=== PATIENT | female | born 1945 | race African-American/Black ===

== ENCOUNTER 2016-08-07 09:13 | Day surgery (SDC) | payer MEDICARE ==
--- NOTE | 2016-08-01 03:36 | HP ---
HISTORY AND PHYSICAL/CONSULTATION NOTE: DATE OF ADMISSION: For cataract surgery on 08/07/16 and 08/14/16. HISTORY OF PRESENT ILLNESS: The patient is a 71-year-old woman scheduled for cataract extractions. PAST MEDICAL HISTORY: The patient's medical problems are follows: 1. Type 2 diabetes mellitus, not well controlled, but with improving control on insulin. 2. Essential hypertension. 3. Obesity. 4. Subclinical hyperthyroidism. 5. 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 6. History of vitamin D deficiency. 7. Gastroesophageal reflux disease. 8. Abdominal pain due to above #5. PAST SURGICAL HISTORY: Include: 1. ROBERT/BSO. 2. Left great toe amputation for osteomyelitis, 2009. 3. Left forefoot metatarsal amputation, 2010. 4. Perirectal abscess I and D, 2009. 5. Cholecystectomy. CURRENT MEDICATIONS: As follows: 1. Hydrocodone 7.5/acetaminophen 325 mg 1 every 6 hours p.r.n. pain. 2. Glipizide extended release 20 mg b.i.d. 3. Lisinopril 2.5 mg every day. 4. Levemir insulin 65 units daily. 5. Torsemide 20 mg 1 tablet twice a day. 6. Fluconazole nasal spray 2 sprays every day to each nostril. 7. Pravastatin 20 mg daily. 8. Diltiazem 240 mg twice a day. 9. Humalog 10 mg twice a day. 10. Vitamin D3 4000 units every day. 11. B12 1000 mcg every day. 12. Ranitidine 300 mg at bedtime. 13. Magnesium oxide 400 mg twice a day. 14. Tylenol 500 mg 2 every day p.r.n. ALLERGIES: To SHELLFISH, PENICILLIN, and METFORMIN, which caused lactic acidosis and SERTRALINE, which caused nausea. FAMILY HISTORY: Positive for diabetes and cancer. SOCIAL AND PERSONAL HISTORY: The patient lives with her daughter. She is retired. HABITS: Tobacco: None. ETOH: None. Regarding smoking, she smoked in her 20s , but never was a heavy smoker. Immunizations are up-to-date. She has had her flu shot. She has had both Prevnar and Pneumovax. She has had Tdap. Zostavax, I do not see records and I will address it in at future appointment. REVIEW OF SYSTEMS: General: She has been feeling fairly well. Her appetite is good. She does not exercise and this has been discussed with her. Her weight is fairly stable. Skin: Negative. HEENT: She has some history of sinus congestion allergies. Nodes: Negative. Heme: Negative. Breast: Negative. Endocrine: See above. Respiratory: She does have a cough. Cardiovascular: Negative. GI: See above. She has had some difficulty with her bowels related to the fistula. : She has urinary frequency related to the diuretic up at night 4 times. STEM LEAD FORMER: See above. Musculoskeletal: See above. Neuro: Negative. PHYSICAL EXAMINATION GENERAL: She is a obese women. She walks with a walker, in no acute distress. VITAL SIGNS: Blood pressure 130/60, pulse 64, respirations 18, and temperature 97.1. SKIN: Warm and dry. HEENT: Eye exam per Dr. Almeida. Mouth: Pharynx unremarkable. She is edentulous. NECK: Supple. She has a goiter. Nodes without adenopathy. CHEST: Clear. HEART: Normal S1 and S2. No murmurs, gallops, or rubs. ABDOMEN: She has mild diffuse tenderness. EXTREMITIES: Showed no edema. She has a left forefoot amputation. NEUROLOGIC: Without gross focal or lateralizing signs. GAIT: With a walker. IMPRESSION: The patient with medical problems as noted above. There were no contraindication to surgeries. PLAN/RECOMMENDATIONS: I will be available in the perioperative period should any questions or problems arise. CC: Dr. Almeida * [id number]/CPS #: [id number] MTDD
[~2016-08-07 09:13] MED LIST: Acetaminophen TAB* 325 MG PO PRN; Buffered Lidocaine 1% SYR 3ML* 3 ML/SYR SYRINGE INTRADERM ONE; Cyclopentolate 1% OPTH.SOL* 2 ML BTL ONE; Flurbiprofen 0.03% OPTH.SOL* 2.5 ML BTL ONE; Lidocaine 1% MPF* 2 ML VIAL ONE; Neomycin/Polymy/Dex OPHTH.OIN* 3.5 GM ONE; Phenylephr/Ketorolac 1%/0.3% OPH DROP BTL ONE; Phenylephrine 2.5% OPTH.SOL* 2 ML BTL ONE; Tetracaine 0.5% OPTH.SOL 4 ML* 1 DROP BTL ONE; Tropicamide 1% OPTH.SOL* BTL ONE; Trypan Blue 0.06% SOL* 0.5 ML BTL ONE
[2016-08-07] MEDS ORDERED: Midazolam* 1 MG/ML 2 ML VIAL (2 MG) ONE ×2 (10:33→10:45)
[2016-08-07] MEDS ORDERED: fentaNYL* 50 MCG/ML 2 ML VIAL (100 MCG VIAL) ONE (10:33)
[2016-08-07 11:22] VITALS: BP 143/75
--- NOTE | 2016-08-08 01:52 | OP ---
DATE OF OPERATION/DICTATION: 08/07/16 - [facility] DATE OF : 49 SURGEON: Dr. Almeida MOP WORKER: None. ANESTHESIOLOGIST: John Juares DO ANESTHESIA: Topical with intravenous sedation. PRE-OP DIAGNOSIS: Dense cataract, small pupil, right eye. POST-OP DIAGNOSIS: Dense cataract, small pupil, right eye. OPERATIVE PROCEDURE: Phacoemulsification and cataract extraction with posterior chamber intraocular lens implant, right eye. COMPLICATIONS: None. BLOOD LOSS: None. DESCRIPTION OF PROCEDURE: The patient was brought to the operating room and given a small amount of intra-venous sedation. A drop of tetracaine was placed into her right eye. She was prepped and draped in the usual sterile fashion for ophthalmic surgery and attention was directed to the right eye where a speculum was placed. A paracentesis was created at the 11 o'clock position, and 0.1 cc of 1% preservative-free lidocaine was injected into the anterior chamber followed by room air. This was followed by Vision Blue dye and then by DisCoVisc. At this point, the anterior capsule was stained blue and the pupil measured approximately 5 mm in diameter. Omidria was used in the irrigating solution and the case proceeded. The eye was digitally stabilized while a 2.75 mm keratome was used to create a triplanar clear corneal incision at the 9 o' clock position. A continuous curvilinear capsulorrhexis was created using a cystotome and Utrata forceps. BSS on a cannula was used to hydrodissect the lens from the capsule. Phaco-emulsification was performed in a divide-and- conquer technique to create 4 fragments, which were removed. A slightly elevated phaco power was necessary to cut through the lens without undo . During the phacoemulsification, a moment was taken where the phacoemulsification tip was removed and extra DisCoVisc was used to coat the endothelium to help prevent damage. At the end of the phacoemulsification step , a small amount of residual cortical material was present and was removed atraumatically using irrigation and aspiration. DisCoVisc was then used to inflate the capsular bag and an SN60AT 21.5 diopter lens was folded. This was inserted into the capsular bag. DisCoVisc was removed using irrigation and aspiration. BSS on a cannula was used to hydrate the corneal wound and seal it. At the end of the case, the lens was centered and stable. The wound was watertight and the eye pressure appeared normal. The speculum was removed and topical Maxitrol ointment was placed on the surface of the eye. The eye was closed, patched, and shielded and the patient was sent to the recovery room in stable condition with postoperative instructions and followup appointment given. [id number]/CPS #: [id number] GALINDO
== END 2016-08-07 11:34 | disposition home or self-care (01) ==
LOC: OREAST 09:13
PROVIDERS: ATTEND Ophthalmology
DX: H25.11 Age-related nuclear cataract, right eye (principal); E11.8 Type 2 diabetes mellitus with unspecified complications; Z79.4 Long term (current) use of insulin; I10 Essential (primary) hypertension; E66.9 Obesity, unspecified; Z68.39 Body mass index [BMI] 39.0-39.9, adult
CPT/HCPCS: A9270-GY; C9447; J2250; J3010; V2632

== ENCOUNTER → 2016-09-11 09:18 | Day surgery (SDC) | payer MEDICARE ==
[~2016-09-11 09:18] MED LIST changes: -Buffered Lidocaine 1% SYR 3ML* 3 ML/SYR SYRINGE INTRADERM ONE; +Buffered Lidocaine 1% SYRIN* 3 ML/SYR SYRINGE INTRADERM ONE; +Insulin REGULAR(*) 1 UNITS UNIT ONE; +Insulin REGULAR(*) 1 UNITS UNIT SUBCUT ONE; +Midazolam* 1 MG/ML 5 ML VIAL (5 MG) ONE; +fentaNYL* 50 MCG/ML 2 ML VIAL (100 MCG VIAL) ONE
[2016-09-11 12:35] VITALS: BP 139/64
--- NOTE | 2016-09-11 16:47 | OP ---
DATE OF OPERATION: 09/11/2016 [facility] DATE OF : 1945. SURGEON: Dr. Casey Almeida. PATENT LITIGATION ASSOCIATE: None. ANESTHESIOLOGIST: Ariela Paez MD ANESTHESIA: Topical with intravenous sedation. PRE-OP DIAGNOSIS: Cataract, left eye. POST-OP DIAGNOSIS: Cataract, left eye. OPERATIVE PROCEDURE: Phacoemulsification and cataract extraction with posterior chamber intraocular lens implant, left eye. COMPLICATIONS: None. BLOOD LOSS: None. DESCRIPTION OF PROCEDURE: The patient was brought to the operating room and received a small amount of intravenous sedation. A drop of Tetracaine was placed in her left eye. She was prepped and draped in the usual sterile fashion for ophthalmic surgery and attention was directed to the left eye where a speculum was placed. A paracentesis was created at the 5 o'clock position and 0.1 cc of 1 percent preservative-free Lidocaine was injected into the anterior chamber followed by DisCoVisc. The eye was digitally stabilized while a 2.75 mm keratome was used to create a triplanar clear corneal incision at the 3 o'clock position. A continuous curvilinear capsulorrhexis was created with a cystotome and Utrata forceps. BSS on a cannula was used to hydrodissect the lens from the capsule. Phacoemulsification was performed in a divide-and- conquer technique to create four fragments which were removed. Residual cortical material was removed with irrigation and aspiration. DisCoVisc was used to inflate the capsular bag and an AUOOTO 23.0 diopter lens was folded and inserted into the capsular bag. DisCoVisc was removed using irrigation and aspiration. BSS on a cannula was used to hydrate the corneal stroma and seal the wound. At the end of the case the pupil was round and the lens was centered. The eye was of normal pressure and the wound was water tight. The speculum was removed and topical Maxitrol ointment was placed on the surface of the eye. The eye was closed, patched and shielded and the patient was sent to the recovery room in stable condition with post operative instructions and follow-up appointment given. [id number]/CPS #: [id number] MTDD
== END | disposition home or self-care (01) ==
LOC: OREAST 09:18
PROVIDERS: ATTEND Ophthalmology
DX: H25.12 Age-related nuclear cataract, left eye (principal); Z87.891 Personal history of nicotine dependence; I10 Essential (primary) hypertension; E11.8 Type 2 diabetes mellitus with unspecified complications; Z79.4 Long term (current) use of insulin; E66.01 Morbid (severe) obesity due to excess calories; Z85.41 Personal history of malignant neoplasm of cervix uteri
CPT/HCPCS: C9447; J2250; J3010; V2632

== ENCOUNTER 2017-05-15 09:46 | Emergency (ER) | payer MEDICARE ==
[2017-05-15 11:18] LABS: BUN/Creatinine Ratio 29.3 (8-20); Calcium 9.7 mg/dL (8.6-10.3); EGFR African American 45.3 (>60); EGFR Non-African American 35.2 (>60); Potassium 4.3 mmol/L (3.5-5.0)
[2017-05-15 11:25] LABS: Hematocrit 38 % (35-47); Hemoglobin 12.5 g/dl (12.0-16.0); Mean Corpuscular HGB Conc 33 g/dl (31-36); Mean Corpuscular Hemoglobin 28 pg (27-31); Mean Corpuscular Volume 84 fL (80-97); Mean Platelet Volume 8 um3 (7.4-10.4); Red Blood Count 4.55 10^6/ul (4.0-5.4); Red Cell Distribution Width 14 % (10.5-15); White Blood Count 7.1 10^3/ul (3.5-10.8)
--- NOTE | 2017-05-15 11:26 | ED ---
Em Reese Nilda, scribed for Rodney Brownlee MD on 05/15/17 at 1037 . Throat Pain/Nasal Congestion - HPI Summary HPI Summary: This patient is a 71 year old F presenting to [facility] accompanied by friend with a chief complaint of constant ear pain for the past 3 days. The patient rates the pain 6/10 in severity. Symptoms aggravated by palpation and alleviated by nothing. Patient reports decreased hearing from L-ear. Patient denies fever, chills, and ear drainage and bleeding. Pt states she does not use ear plugs or other foreign bodies, except for cotton buds. She notes that she placed sweet oil and peroxide in ear since onset of pain with no relief. Medications include insulin (60, last taken this morning 0738). Allergies to penicillin ( rash). PMHx includes DM. No PSHx ears. - History of Current Complaint Chief Complaint: EDEarPain Hx Obtained From: Patient Onset/Duration: Sudden Onset, Lasting Days, Still Present Severity: Moderate - Allergies/Home Medications Allergies/Adverse Reactions: Allergies Allergy/AdvReac Type Severity Reaction Status Date / Time Penicillins Allergy Severe roy and Verified 05/15/17 09:52 itch Shellfish Allergy Allergy Severe mouth, Verified 05/15/17 09:52 tongue swelling Chocolate Allergy Intermediate rash itchy Verified 05/15/17 09:52 PMH/Surg Hx/FS Hx/Imm Hx Endocrine/Hematology History: Reports: Hx Diabetes - TYPE II - TAKE ORAL MEDICATION AND INSULIN FOR Cardiovascular History: Reports: Hx Hypertension - ON MEDICATION FOR Denies: Hx Pacemaker/ICD, Other Cardiovascular Problems/Disorders Respiratory History: Denies: Hx Asthma, Other Respiratory Problems/Disorders GI History: Reports: Hx Hiatal Hernia Denies: Other GI Disorders History: Reports: Hx Kidney Infection - hx of none now Denies: Hx Renal Disease Musculoskeletal History: Denies: Other Musculoskeletal History Sensory History: Reports: Hx Cataracts - pending surgery Denies: Hx Contacts or Glasses, Hx Hearing Aid Opthamlomology History: Reports: Hx Cataracts - pending surgery Denies: Hx Contacts or Glasses Neurological History: Denies: Other Neuro Impairments/Disorders Psychiatric History: Denies: Hx Panic Disorder - Cancer History Cancer Type, Location and Year: UTERINE Hx Chemotherapy: Yes - colon cancer Hx Radiation Therapy: Yes - STARTED 03/14/15 - Surgical History Surgery Procedure, Year, and Place: CHOLECYSTECTOMY @ [facility], LT.FOOT AMPUTATION, POWERPORT PLACEMENT. OPEN HYSTERECTOMY 06/10/15 Hx Anesthesia Reactions: No Infectious Disease History: No Infectious Disease History: Denies: Traveled Outside the [place] in Last 30 Days - Family History Known Family History: Positive: Hypertension, Diabetes - Social History Lives: With Family Alcohol Use: None Substance Use Type: Reports: None Smoking Status (MU): Never Smoked Tobacco Amount Used/How Often: 1 PACK PER WEEK X 1 YEAR Have You Smoked in the Last Year: No Review of Systems Negative: Fever, Chills Positive: Ear Ache - left, Other - decreased hearing from L-ear; negative ear drainage or bleeding All Other Systems Reviewed And Are Negative: Yes Physical Exam - Summary Physical Exam Summary: Appearance: Well-appearing, Well-nourished Skin: Warm, Dry, No rash Eyes: Normal, PERRL, EOMI, sclera anicteric ENT: L-ear + Foreign body (waxy material but clearly not cerumen), swelling of external auditory canal, unable to see eardrum, canal w.o. obvious bleeding or otitis externa. R-ear normal. No pain with traction on pinna Neck: Supple, nontender Respiratory: Clear to auscultation Cardiovascular: S1, S2, no murmur, no rub, no gallop Abdomen: Soft, nontender, no organomegaly Bowel sounds: Present Musculoskeletal: Normal, Strength/ROM Intact, no edema, pulses symmetrical Neurological: Normal, A&Ox3, cranial nerves II-XII WNL, follows commands, gait not tested, sensation intact to pin and light touch Psychiatric: affect normal, behavior appropriate, dressed appropriately, judgment intact Triage Information Reviewed: Yes Vital Signs On Initial Exam: Initial Vitals Temp Pulse Resp BP Pulse Ox 97.7 F 98 17 138/61 98 05/15/17 09:48 05/15/17 09:48 05/15/17 09:48 05/15/17 09:48 05/15/17 09:48 Vital Signs Reviewed: Yes Diagnostics - Vital Signs Vital Signs Temp Pulse Resp BP Pulse Ox 05/15/17 09:48 97.7 F 98 17 138/61 98 - Laboratory Lab Results: Lab Results 05/15/17 05/15/17 05/15/17 Range/Units 10:33 10:50 10:50 WBC 7.1 (3.5-10.8) 10^3/ul RBC 4.55 (4.0-5.4) 10^6/ul Hgb 12.5 (12.0-16.0) g/dl Hct 38 (35-47) % MCV 84 (80-97) fL MCH 28 (27-31) pg MCHC 33 (31-36) g/dl RDW 14 (10.5-15) % Plt Count 283 (150-450) 10^3/ul MPV 8 (7.4-10.4) um3 Neut % (Auto) 76.4 (38-83) % Lymph % (Auto) 14.0 L (25-47) % Gosper % (Auto) 7.1 (1-9) % Eos % (Auto) 1.9 (0-6) % Baso % (Auto) 0.6 (0-2) % Absolute Neuts (auto) 5.4 (1.5-7.7) 10^3/ul Absolute Lymphs (auto) 1.0 (1.0-4.8) 10^3/ul Absolute Monos (auto) 0.5 (0-0.8) 10^3/ul Absolute Eos (auto) 0.1 (0-0.6) 10^3/ul Absolute Basos (auto) 0 (0-0.2) 10^3/ul Absolute Nucleated RBC 0 10^3/ul Nucleated RBC % 0.1 Sodium 134 (133-145) mmol/L Potassium 4.3 (3.5-5.0) mmol/L Chloride 100 L (101-111) mmol/L Carbon Dioxide 26 (22-32) mmol/L Anion Gap 8 (2-11) mmol/L BUN 43 H (6-24) mg/dL Creatinine 1.47 H (0.51-0.95) mg/dL Est GFR ( Amer) 45.3 (>60) Est GFR (Non-Af Amer) 35.2 (>60) BUN/Creatinine Ratio 29.3 H (8-20) Glucose 310 H (70-100) mg/dL POC Glucose (mg/dL) 316 H (70-100) mg/dL Calcium 9.7 (8.6-10.3) mg/dL Result Diagrams: 05/15/17 10:50 05/15/17 10:50 Lab Statement: Any lab studies that have been ordered have been reviewed, and results considered in the medical decision making process. EENT Course/Dx - Course Assessment/Plan: This patient is a 71 year old F presenting to [facility] accompanied by family with a chief complaint of constant ear pain for the past 3 days. The patient rates the pain 6/10 in severity. Symptoms aggravated by palpation and alleviated by nothing. Patient reports decreased hearing from L- ear. Patient denies fever, chills, and ear drainage and bleeding. Pt states she does not use ear plugs or other foreign bodies, except for cotton buds. She notes that she placed sweet oil and peroxide in ear since onset of pain with no relief. Medications include insulin (60, last taken this morning 0738). Allergies to penicillin (rash). PMHx includes DM. No PSHx ears. . Blood Gluc: 360. Pending BMP and CBC. Pt is stable and will be D/C with Dx of otits externa and a prescription for cortisporin otic drops. Pt advised to follow up with PCP. Pt understands and is agreeable with this plan. - Diagnoses Provider Diagnoses: Otitis externa Discharge - Discharge Plan Condition: Good Disposition: HOME Prescriptions: Neomyc/Polym/HC 1% OTIC SUSP* [Cortisporin Otic Susp 1%*] 4 drop LEFT EAR QID # 1 btl Patient Education Materials: Otitis Externa (ED) Referrals: Elizabeth Morgan MD [Primary Care Provider] - 05/22/17 (follow up in one week) Additional Instructions: keep ear dry, silicone ear plugs when showering or bathing The documentation as recorded by the Em méndez Nilda accurately reflects the service I personally performed and the decisions made by me, Rodney Brownlee MD.
[2017-05-15 11:41] VITALS: BP 140/66
== END 2017-05-15 11:40 | disposition home or self-care (01) ==
LOC: ED 09:46
DX: H60.92 Unspecified otitis externa, left ear (principal); E11.9 Type 2 diabetes mellitus without complications; Z79.01 Long term (current) use of anticoagulants; Z88.0 Allergy status to penicillin
CPT/HCPCS: 36415; 80048; 85025; 99282

== ENCOUNTER 2017-10-18 14:22 | Emergency (ER) | payer MEDICARE ==
[2017-10-18 14:32] VITALS: BP 170/90
--- NOTE | 2017-10-18 16:51 | RAD ---
INDICATION: Shortness of breath. COMPARISON: Most recent comparison chest x-rays dated March 10, 2015 TECHNIQUE: PA and lateral views of the chest were obtained. FINDINGS: There is a right-sided subclavian vein Mediport with the tip terminating at the cavoatrial junction unchanged from the prior radiograph. The heart and mediastinum are normal in size and contour. The lungs are grossly clear. There is no evidence of large pleural effusion. Visualized bones are normal for the patient's age. There is no radiographic evidence of free air beneath the diaphragm IMPRESSION: No radiographic evidence of acute cardiopulmonary disease.
--- NOTE | 2017-10-18 21:38 | ED ---
Jimy Reese Natalie, scribed for Giorgio Guevara MD on 10/18/17 at 1717 . HPI Chest Pain - HPI Summary HPI Summary: The pt is a 72 y/o F presenting to the ED c/o left anterior chest wall pain s/p falling yesterday. She slipped and fell on her left side. The pain is rated 8/ 10 in severity. The pain is aggravated by movement and deep breathing. Pt denies abd pain. - History of Current Complaint Chief Complaint: EDChestWallPain Time Seen by Provider: 10/18/17 16:58 Hx Obtained From: Patient Onset/Duration: Started Hours Ago - yesterday, Still Present Timing: Constant Initial Severity: Moderate Current Severity: Moderate Pain Intensity: 8 Pain Scale Used: 0-10 Numeric Chest Pain Location: Left Anterior Chest Pain Radiates: No Aggravating Factor(s): Movement, Deep Breaths Alleviating Factor(s): Rest Associated Signs and Symptoms: Negative: Abdominal Pain - Allergy/Home Medications Allergies/Adverse Reactions: Allergies Allergy/AdvReac Type Severity Reaction Status Date / Time chocolate flavor Allergy Rash Verified 10/18/17 14:33 Penicillins Allergy Rash Verified 10/18/17 14:33 shellfish derived Allergy Rash Verified 10/18/17 14:33 PMH/Surg Hx/FS Hx/Imm Hx Endocrine/Hematology History: Reports: Hx Diabetes - TYPE II - TAKE ORAL MEDICATION AND INSULIN FOR Cardiovascular History: Reports: Hx Hypertension - ON MEDICATION FOR Denies: Hx Pacemaker/ICD, Other Cardiovascular Problems/Disorders Respiratory History: Denies: Hx Asthma, Other Respiratory Problems/Disorders GI History: Reports: Hx Hiatal Hernia Denies: Other GI Disorders History: Reports: Hx Kidney Infection - hx of none now Denies: Hx Renal Disease Musculoskeletal History: Denies: Other Musculoskeletal History Sensory History: Reports: Hx Cataracts - pending surgery Denies: Hx Contacts or Glasses, Hx Hearing Aid Opthamlomology History: Reports: Hx Cataracts - pending surgery Denies: Hx Contacts or Glasses Neurological History: Denies: Other Neuro Impairments/Disorders Psychiatric History: Denies: Hx Panic Disorder - Cancer History Cancer Type, Location and Year: UTERINE Hx Chemotherapy: Yes - colon cancer Hx Radiation Therapy: Yes - STARTED 03/14/15 - Surgical History Surgery Procedure, Year, and Place: CHOLECYSTECTOMY @ [facility] [place], LT.FOOT AMPUTATION, POWERPORT PLACEMENT. OPEN HYSTERECTOMY 06/10/15 Hx Anesthesia Reactions: No Infectious Disease History: No Infectious Disease History: Denies: Traveled Outside the [place] in Last 30 Days - Family History Known Family History: Positive: Hypertension, Diabetes - Social History Alcohol Use: None Substance Use Type: Reports: None Smoking Status (MU): Never Smoked Tobacco Amount Used/How Often: 1 PACK PER WEEK X 1 YEAR Have You Smoked in the Last Year: No Review of Systems Positive: Chest Pain - left anterior chest wall Negative: Abdominal Pain All Other Systems Reviewed And Are Negative: Yes Physical Exam - Summary Physical Exam Summary: Appearance: The patient is well-nourished in no acute distress and in no acute pain. Skin: The skin is warm and dry and skin color reflects adequate perfusion. HEENT: The head is normocephalic and atraumatic. The pupils are equal and reactive. The conjunctivae are clear and without drainage. Nares are patent and without drainage. Mouth reveals moist mucous membranes and the throat is without erythema and exudate. The external ears are intact. The ear canals are patent and without drainage. The tympanic membranes are intact. Neck: the neck is supple with full range of motion and non-tender. There are no carotid bruits. There is no neck vein distension. Respiratory: Chest is tender in left anteriolateral lower left chest wall. Lungs are clear to auscultation and breath sounds are symmetrical and equal. Cardiovascular: Heart is borderline tachycardic. There is no murmur or rub auscultated. There is bilateral pitting leg edema and pulses are symmetrical and equal. Abdomen: The abdomen is soft and non-tender. There are normal bowel sounds heard in all four quadrants and there is no organomegaly palpated. Musculoskeletal: There is no back tenderness noted. Extremities are non-tender with full range of motion. There is good capillary refill. There is bilateral pitting leg edema, but no calf tenderness elicited. Neurological: Patient is alert and oriented to person, place and time. The patient has symmetrical motor strength in all four extremities. Cranial nerves are grossly intact. Deep tendon reflexes are symmetrical and equal in all four extremities. Psychiatric: The patient has an appropriate affect and does not exhibit any anxiety or depression. Triage Information Reviewed: Yes Vital Signs On Initial Exam: Initial Vitals Temp Pulse Resp BP Pulse Ox 99.0 F 107 15 170/90 97 10/18/17 14:28 10/18/17 14:28 10/18/17 14:28 10/18/17 14:28 10/18/17 14:28 Vital Signs Reviewed: Yes Diagnostics - Vital Signs Vital Signs Temp Pulse Resp BP Pulse Ox 10/18/17 14:28 99.0 F 107 15 170/90 97 - Laboratory Lab Statement: Any lab studies that have been ordered have been reviewed, and results considered in the medical decision making process. - Radiology CXR Xray Interpretation: No Acute Changes - No radiographic evidence of acute cardiopulmonary disease. ED physician has reviewed this report. Radiology Interpretation Completed By: Radiologist Chest Pain Course/Dx - Course Course Of Treatment: Ms. Mauricio clearly had chest wall pain and tenderness after a fall yesterday. CXR was negative and I will treat her symptomatically. - Diagnoses Provider Diagnoses: Chest wall pain Discharge - Sign-Out/Discharge Documenting (check all that apply): Discharge/Admit/Transfer - Discharge Plan Condition: Stable Disposition: HOME Prescriptions: HYDROcodone/ACETAMIN 5-325 MG* [Baldwin 5-325 TAB*] 1 tab PO Q6H PRN #20 tab MDD 4 PRN Reason: Pain Patient Education Materials: Chest Wall Pain (ED) Referrals: Elizabeth Morgan MD [Primary Care Provider] - 3 Days Additional Instructions: Please take Hydrocodone as described. Follow up with your primary care physician in 2-3 days. Please return to the emergency department for any new or worsening symptoms. - Billing Disposition and Condition Condition: STABLE Disposition: HOME The documentation as recorded by the Jimy méndez Natalie accurately reflects the service I personally performed and the decisions made by , Giorgio Guevara MD.
== END 2017-10-18 17:37 | disposition home or self-care (01) ==
LOC: ED 14:22
DX: R07.89 Other chest pain (principal)
CPT/HCPCS: 71046; 99282